=== PATIENT | female | born 1965 | race Caucasian/White ===

== ENCOUNTER → 2019-10-16 13:58 | Outpatient (CLI) | payer OTHER, SELFPAY ==
[2019-10-17 14:12] LABS: COVID19 Sendout Not Detected (Not Detected)
== END ==
PROVIDERS: Visit Provider Physician Assistant
DX: Z03.818 Encounter for observation for suspected exposure to other biological agents ruled out (principal)
CPT/HCPCS: 87635

== ENCOUNTER → 2023-03-02 12:27 | Outpatient (CLI) | payer OTHER, SELFPAY ==
--- NOTE | 2023-03-02 12:30 | DI.RAD.S_ITS ---
PROCEDURE: XR HIP W PEL IF DONE LT 2V INDICATIONS: Hip pain TECHNIQUE: AP pelvis with lateral view(s) of the left hip(s). COMPARISON: None. FINDINGS: Bones: No fractures or dislocations. Pelvic ring appears intact. No suspicious bony lesions. Soft tissues: The visualized bowel gas pattern is normal. No suspicious soft tissue calcifications. IMPRESSION: No acute bony abnormality. Dictated by: America Mcdermott M.D. on 03/02/2023 at 18:00 Approved by: America Mcdermott M.D. on 03/02/2023 at 18:01
--- NOTE | 2023-03-02 12:30 | DI.RAD.S_ITS ---
PROCEDURE: XR FEMUR LT MIN 2V INDICATIONS: Hip pain TECHNIQUE: 2 views of the femur were acquired. COMPARISON: None. FINDINGS: Bones: No fractures or dislocations. No suspicious bony lesions. Soft tissues: No suspicious soft tissue calcifications or masses. IMPRESSION: No acute bony abnormality. Dictated by: America Mcdermott M.D. on 03/02/2023 at 18:01 Approved by: America Mcdermott M.D. on 03/02/2023 at 18:01
== END ==
PROVIDERS: PCP Family Medicine; Referring Provider Family Medicine; Visit Provider Family Medicine
DX: M25.552 Pain in left hip (principal)
CPT/HCPCS: 73502; 73552

== ENCOUNTER 2023-05-24 13:16 | Emergency (ER) | payer OTHER, SELFPAY ==
[2023-05-24 13:22] VITALS: BP 162/99; PULSE 78; RESP 17; TEMP 36.6; O2SAT 100; BMI 23.6
--- NOTE | 2023-05-24 13:22 | ED_ITS ---
HPI - Extremity Problem <Edwin Harden PA-C - Last Filed: 05/24/23 14:29> General Chief complaint: Extremity Problem,Nontraumatic Stated complaint: per pt Possible clot L Leg Time Seen by Provider: 05/24/23 13:22 History of Present Illness HPI Narrative: This is a 57-year-old female presents emergency department due to left calf aching for the last couple of days as well as some reported swelling. States that she injured her hip about 3 months ago as well as a couple weeks ago in [place] and just was diagnosed with the COVID last week. Concerned she was a blood clot. Denies any chest pain or shortness of breath. Denies any numbness. Some shooting pain down her left calf occasionally. Related Data Home Medications Medication Instructions Recorded Confirmed No Known Home Medications 03/02/23 03/02/23 Allergies Allergy/AdvReac Type Severity Reaction Status Date / Time codeine Allergy Mild Hallucinati Verified 03/02/23 11:45 ng latex Allergy Mild Hives Verified 03/02/23 11:45 Review of Systems <Edwin Harden PA-C - Last Filed: 05/24/23 14:29> Review of Systems Narrative: GENERAL: Denies chills, fatigue, malaise, fever, sweats. HEENT: Denies sinus pain, ear pain, sore throat, difficulty swallowing, dizziness. RESPIRATORY: Denies dyspnea, cough, wheezing, hemoptysis, sputum. CARDIOVASCULAR: Denies chest pain, palpitations, orthopnea, edema, GASTROINTESTINAL: Denies nausea, vomiting, abdominal pain, diarrhea, consti pation, melena. : Denies dysuria, frequency, incontinence, hematuria, urinary retention. MUSCULOSKELETAL: Left lower extremity pain and reported swelling, denies weakness, joint pain, or bony pain SKIN: Denies rash, skin lesions, or other NEUROLOGIC: Denies weakness, headache, numbness, change in speech, confusion, seizures, incoordination. PSYCHIATRIC: No concerning psychosocial issues. 12 point review of systems is negative except for those stated above Patient History <Edwin Harden PA-C - Last Filed: 05/24/23 14:29> Medical History (Updated 05/24/23 @ 14:28 by Edwin Harden PA-C) Allergies PTSD (post-traumatic stress disorder) Anxiety Heavy menstrual period Fibroids History of abnormal cervical Pap smear Seborrheic keratoses Surgical History (Updated 03/19/23 @ 19:13 by Esther Calloway) History of knee surgery (~2011) Anesthesia History of hysterectomy (~2006) Family History (Updated 03/19/23 @ 19:14 by Esther Calloway) Father Hypertension Hyperlipidemia Mental health problem Social History Smoking Status: Never smoker Smoking Status: Never smoker Exam <Edwin Harden PA-C - Last Filed: 05/24/23 14:29> Narrative Exam Narrative: GENERAL: Well-developed patient, in mild distress. HEAD: Atraumatic. Normocephalic. EYES: Pupils equal round and reactive. Extraocular motions intact. No scleral icterus. No injection or drainage. ENT: Nose without bleeding, purulent drainage. Throat without erythema, tonsillar hypertrophy or exudate. Airway patent. NECK: Trachea midline. Non tender EXTREMITIES: Mild tenderness to palpation to popliteal space of the left lower extremity. No significant unilateral edema noted. NEURO: AOx3. SKIN: No rash or erythema of visible areas Initial Vital Signs Initial Vital Signs: Vital Signs Temperature 98 F 05/24/23 13:22 Pulse Rate 78 05/24/23 13:22 Respiratory Rate 17 05/24/23 13:22 Blood Pressure 162/99 H 05/24/23 13:22 Pulse Oximetry 100 05/24/23 13:22 Oxygen Delivery Method Room Air 05/24/23 13:22 <Etta Aaron MD - Last Filed: 05/24/23 18:11> Initial Vital Signs Initial Vital Signs: Vital Signs Temperature 98 F 05/24/23 13:22 Pulse Rate 78 05/24/23 13:22 Respiratory Rate 17 05/24/23 13:22 Blood Pressure 162/99 H 05/24/23 13:22 Pulse Oximetry 100 05/24/23 13:22 Oxygen Delivery Method Room Air 05/24/23 13:22 Course <Edwin Harden PA-C - Last Filed: 05/24/23 14:29> Orders Ordered: ED Orders 05/24/23 13:25 US periph venous low extrem lt Stat Vital Signs Vital signs: Vital Signs - 8 hr 05/24/23 13:22 05/24/23 14:36 Temperature 98 F Pulse Rate 78 85 Respiratory Rate 17 14 Blood Pressure 162/99 H 119/75 Pulse Oximetry 100 98 Oxygen Delivery Method Room Air Room Air <Etta Aaron MD - Last Filed: 05/24/23 18:11> Orders Ordered: ED Orders 05/24/23 13:25 US periph venous low extrem lt Stat Vital Signs Vital signs: Vital Signs - 8 hr 05/24/23 13:22 05/24/23 14:36 Temperature 98 F Pulse Rate 78 85 Respiratory Rate 17 14 Blood Pressure 162/99 H 119/75 Pulse Oximetry 100 98 Oxygen Delivery Method Room Air Room Air MDM - Extremity (Nontraumatic) <Edwin Harden PA-C - Last Filed: 05/24/23 14:29> Imaging Data US - DVT: Radiologist's Impression: [address] [address] Ultrasound Report Signed Patient: Ladi Vidales MR#: [id number] : 1965 Acct:[id number] Age/Sex: 57 / F Date of Service: 05/24/23 Loc: ED Accession Number: [id number] Procedure: US periph venous low extrem lt Ordering Provider: Edwin Harden P.A-C PROCEDURE: US PERIPH VENOUS LOW EXTREM LT INDICATIONS: PAIN, EDEMA TECHNIQUE: Real-time imaging, as well as color and pulse Doppler interrogation, were performed of the lower extremity deep veins from the inguinal ligament to the popliteal fossa, with documentation of the visualized calf veins. COMPARISON: None. FINDINGS: The common femoral, femoral, popliteal, and the visualized calf veins are normally compressible, and free of intraluminal thrombus. Color and pulse Doppler demonstrate normal phasic intraluminal flow. There is normal augmentation response to distal compression maneuver. 4.7 x 1.5 x 2.9 centimeter left popliteal cyst. IMPRESSION: No evidence of deep vein thrombosis involving the left lower extremity. Dictated by: Isi Andres MD, PhD on 05/24/2023 at 14:17 Approved by: Isi Andres MD, PhD on 05/24/2023 at 14:17 [facility] Narrative Medical decision making narrative: ED course: This is a 57-year-old female presents emergency department due to concerns for a left lower extremity DVT as she reports some aching to her left calf as well as some subjective swelling. No swelling noticed on exam. Ultrasound was ordered which was negative for DVT but did show a popliteal cyst which may be causing the patient's pain.. Recommended supportive care. No significant tenderness to palpation to any bony parts with the area concerning for any kind of fracture. CC: Left lower extremity pain Complicating co-morbidities: No Data collected from: Previous notes Medical records reviewed: Patient was not been to this ED in the past. No pertinent medical history. Differential considered, but not limited to: DVT, Gutierrez cyst, musculoskeletal injury Exam documented above, pertinent findings include: Some tenderness to palpation to the posterior calf Lab Test results independently reviewed as above. Pertinent findings: None obtained Imaging studies independently reviewed: Ultrasound negative for DVT, but was positive for popliteal cyst Scores Used: None MIPS Elements: None Consultations: None Treatments: None Re-evaluations: None Discussion: Discussed plan with the patient was comfortable with the plan Diagnosis: Popliteal cyst Disposition: see below, along with detailed discharge instructions that have been reviewed with patient as well as indications for ED re-evaluation and additional outpatient follow up Discharge Plan Departure Patient Disposition: Home Clinical Impression: Popliteal cyst Instructions: DI for Gutierrez Cyst Activity Restrictions/Additional Instructions: Thank you for coming to the [facility] Emergency Department today. As we discussed your ultrasound was negative for a blood clot. It did show something called ?popliteal cyst?. I recommend rest, ice, elevation, ibuprofen until your symptoms improve. You may also speak to your primary care provider for referral to Orthopedics if your pain does not improve for possible aspiration of the cyst. Please return to the emergency department if you develop any worsening swelling, chest pain, shortness of breath, or any other concerning signs or symptoms. I hope you feel better soon. Please follow up with your primary care provider within a week if your symptoms continue. If you do not have a primary care provider please contact the [facility] Resource line at [phone]. They will ask some questions about your medical history and help you get set up with a provider in the community. Prescriptions: No Action No Known Home Medications Referrals: Carissa Parra MD [Primary Care Provider] - Stand Alone Forms: Patient Portal/API ED Sign-out <Etta Aaron MD - Last Filed: 05/24/23 18:11> Cosign ED Attending Cosbambiature Attestation: I was immediately available in the department for consultation throughout this patient's visit. Etta Aaron MD
--- NOTE | 2023-05-24 13:25 | DI.US.S_ITS ---
PROCEDURE: US PERIPH VENOUS LOW EXTREM LT INDICATIONS: PAIN, EDEMA TECHNIQUE: Real-time imaging, as well as color and pulse Doppler interrogation, were performed of the lower extremity deep veins from the inguinal ligament to the popliteal fossa, with documentation of the visualized calf veins. COMPARISON: None. FINDINGS: The common femoral, femoral, popliteal, and the visualized calf veins are normally compressible, and free of intraluminal thrombus. Color and pulse Doppler demonstrate normal phasic intraluminal flow. There is normal augmentation response to distal compression maneuver. 4.7 x 1.5 x 2.9 centimeter left popliteal cyst. IMPRESSION: No evidence of deep vein thrombosis involving the left lower extremity. Dictated by: Isi Andres MD, PhD on 05/24/2023 at 14:17 Approved by: Isi Andres MD, PhD on 05/24/2023 at 14:17
--- NOTE | 2023-05-24 14:07 | PC.NURSE ---
patient states that she fell and hurt her hip and thigh in February. Then she reinjured the same leg in April. She has been having aches, pain, and swelling in that leg and she was told by her chiropractor that she had a DVT and needed to go to the ER.
[2023-05-24 14:36] VITALS: BP 119/75; PULSE 85; RESP 14; O2SAT 98
== END 2023-05-24 14:38 | disposition home or self-care (01) ==
PROVIDERS: Emergency Provider Physician Assistant Medical; PCP Family Medicine
DX: M71.22 Synovial cyst of popliteal space [Baker], left knee (principal); Z86.16 Personal history of COVID-19
CPT/HCPCS: 93971; 99283

== ENCOUNTER → 2023-10-18 13:00 | Outpatient (CLI) | payer OTHER, SELFPAY ==
[2023-10-18 13:31] LABS: Add Manual Diff / Slide Review NO; Basophils Absolute Auto 0 /uL (0-100); Basophils Percent Auto 0.9 % (0-2); Eosinophils Absolute Auto 200 /uL (0-450); Eosinophils Percent Auto 3.6 % (2-4); Hematocrit 40.8 % (36-46); Hemoglobin 13.8 g/dL (12.0-16.0); Lymphocytes Absolute Auto 1700 /uL (1100-4500); Lymphocytes Percent Auto 31.5 % (25-40); Mean Corpuscular HGB Conc 33.9 % (30-36); Mean Corpuscular Hemoglobin 32.2 PG (26-34); Mean Corpuscular Volume 94.9 fL (80-100); Monocytes Absolute Auto 300 /uL (0-900); Monocytes Percent Auto 5.5 % (3-14); Neutrophils Absolute Auto 3100 /uL (1500-7000); Neutrophils Percent Auto 58.5 % (50-75); Platelet Count 272 X10^3/uL (150-400); Red Cell Distribution Width 12.8 % (11.6-14.8); White Blood Cell Count 5.4 X10^3/uL (4.5-11.0)
[2023-10-18 13:54] LABS: Alanine Aminotransferase 15 IU/L (<35); Albumin 4.4 g/dL (3.5-5.0); Albumin Globulin Ratio 1.8 (1.0-2.8); Alkaline Phosphatase 80 U/L (38-126); Aspartate Aminotransferase 20 IU/L (14-36); BUN Creatinine Ratio 14.4 (6-22); Bilirubin Total 0.7 mg/dL (0.2-1.3); Blood Urea Nitrogen 13 mg/dL (7-17); Calcium 9.7 mg/dL (8.4-10.2); Carbon Dioxide 27 mmol/L (22-32); Chloride 103 mmol/L (98-107); Cholesterol 300 mg/dL (140-199); Estimated Glomerular Filt Rate > 60 mL/min (>60); Globulin 2.5 g/dL (1.7-4.1); Glucose 93 mg/dL (70-100); HDL Cholesterol 74 mg/dL (40-60); HEMOLYSIS < 15 (0-50); LDL Cholesterol Calculated 189 mg/dL (<100); Potassium 4.3 mmol/L (3.4-5.1); Sodium 138 mmol/L (137-145); Total Protein 6.9 g/dL (6.3-8.2); Triglycerides 186 mg/dL (35-150)
[2023-10-18 14:19] LABS: TSH w/ Reflex to FT4 1.15 uIU/mL (0.47-4.68)
[2023-10-18 16:03] LABS: Estradiol, Total 138.5 pg/mL
[2023-10-19 00:06] LABS: Hemoglobin A1C% w Est Avg Glu 5.1 % (4.0-6.0)
== END ==
PROVIDERS: PCP Family Medicine; Referring Provider Family Medicine; Visit Provider Family Medicine
DX: E78.5 Hyperlipidemia, unspecified (principal); Z13.1 Encounter for screening for diabetes mellitus; R23.2 Flushing; Z13.220 Encounter for screening for lipoid disorders; R63.5 Abnormal weight gain; R61 Generalized hyperhidrosis
CPT/HCPCS: 36415; 80053; 80061; 82670; 83036; 84443; 85025

== ENCOUNTER → 2024-06-02 13:37 | Outpatient (CLI) | payer OTHER, SELFPAY | PROVIDERS: PCP Family Medicine; Visit Provider Registered Nurse | DX: R30.0 Dysuria (principal) | CPT/HCPCS: 87086 ==